=== PATIENT | male | born 1955 | race Caucasian/White ===

== ENCOUNTER 2018-01-31 09:25 | Emergency (ER) | payer OTHER ==
[~2018-01-31] VITALS: Ht 170.2 cm; Wt 74.0 kg
[~2018-01-31 09:25] MED LIST: ASPI1TAB7 PO; AUGM875T PO; CANA100T PO; GLUC1000 PO; JANU100T PO; LIPI20TA PO; LISI-360 PO; ZOLP10TA3 PO
[2018-01-31 09:29] VITALS: BP 159/75; PULSE 89; RESP 16; TEMP 98.3; O2SAT 99
[2018-01-31] MEDS ORDERED: LISI-515 PO (09:47)
[2018-01-31] MEDS ORDERED: VICT18IN SQ (09:47)
[2018-01-31] MEDS ORDERED: TETANUS/DIPHTHERIA TOXOID ADULT 0.5 ML VIAL IM ONE (10:00)
[2018-01-31] MEDS ORDERED: LIDOCAINE HCL 1% 20 ML VIAL ONE (10:14)
[2018-01-31] MEDS ORDERED: LIDOCAINE HCL 1% 50 ML VIAL INFIL ONE (10:15)
--- NOTE | 2018-01-31 10:16 | PD ---
HPI Chief Complaint: Laceration/Skin Injury Time Seen by Provider: 09:33 Travel History International Travel<30 days: No Contact w/Intl Traveler<30days: No Traveled to known affect area: No History of Present Illness HPI This is a 62-year-old male here with a laceration to his nose caused by a trip and fall last night. He reports he tripped while getting out of the hot tub falling forward injuring his nose on a lawn chair. There was no loss of consciousness. He denies headache, visual changes, neck pain. Denies any other injuries. Not anticoagulated. He cleanse the wound and placed a Band- Aid over the nose. This morning when he removed the bandage he noticed the wound looked deeper than he originally thought which prompted his visit today. Injury occurred approximately 8 hours prior. Symptom severity is moderate. No aggravating or alleviating factors. PFSH Past Medical History Diabetes: Yes Patient Takes Glucophage: No Hypertension: Yes Tetanus Vaccination: > 5 Years Influenza Vaccination: No Past Surgical History Appendectomy: Yes Tonsillectomy: Yes Social History Alcohol Use: Yes (occ) Tobacco Use: No Allergies-Medications (Allergen,Severity, Reaction): Coded Allergies: No Known Allergies (Unverified Adverse Reaction, Unknown, 01/31/18) Reported Meds & Prescriptions Reported Meds & Active Scripts Active Reported Victoza Inj (Liraglutide Inj) 18 Mg/3 Ml Pen 0.6 Mg SQ DAILY Lisinopril 20 Mg Tab 20 Mg PO DAILY Review of Systems Except as stated in HPI: all other systems reviewed are Neg General / Constitutional: No: Fever Eyes: No: Visual changes HENT: No: Headaches Cardiovascular: No: Chest Pain or Discomfort Respiratory: No: Shortness of Breath Gastrointestinal: No: Abdominal Pain Genitourinary: No: Dysuria Physical Exam Narrative GENERAL: Alert and well-appearing 62-year-old male SKIN: Warm and dry. HEAD: Atraumatic. Normocephalic. EYES: Pupils equal and round. EOMs intact. No injection or drainage. ENT: No nasal bone tenderness or deformity. 2 cm vertical laceration to the center of the nose. no nasal bleeding or discharge. Mucous membranes pink and moist. NECK: Trachea midline. No midline spine tenderness. Patient freely moves the neck. CARDIOVASCULAR: Regular rate and rhythm. RESPIRATORY: No accessory muscle use. Clear to auscultation. Breath sounds equal bilaterally. GASTROINTESTINAL: Abdomen soft, non-tender, nondistended. Hepatic and splenic margins not palpable. MUSCULOSKELETAL: Extremities without clubbing, cyanosis, or edema. No obvious deformities. NEUROLOGICAL: Awake and alert. No obvious cranial nerve deficits. Motor grossly within normal limits. Five out of 5 muscle strength in the arms and legs. Normal speech. Data Data Last Documented VS Vital Signs Date Time Temp Pulse Resp B/P (MAP) Pulse Ox O2 Delivery O2 Flow Rate FiO2 01/31/18 09:29 98.3 89 16 159/75 (103) 99 Room Air Orders Orders Tetanus/Diphtheria Tox Adult (Tetanus/Di (01/31/18 10:00) Lidocaine 1% Inj (50 Ml) (Xylocaine 1% I (01/31/18 10:15) Lidocaine 1% Inj (Xylocaine 1% Inj) (01/31/18 10:14) MDM Medical Decision Making Medical Screen Exam Complete: Yes Emergency Medical Condition: Yes Differential Diagnosis Facial laceration, nasal bone injury, nasal bone fracture, abrasions Narrative Course 62-year-old male here with a 2 cm laceration to his nose. Injury occurred approximately 8 hours prior. Wound edges are approximately 3-4 mm. Leaving the wound open in its current state I feel would cause significant scarring. risk of infection was discussed at length with patient. He accepts these risk and is requesting that I close the wound. Given its location and risk of scarring I will loosely approximate wound edges after extensive irrigation. He will be referred to plastic surgery for follow-up. Procedures Procedure Narrative LACERATION LOCATION: Nose LENGTH: 2 cm NUMBER OF STITCHES/YRN: 2 REPAIR: The area of the laceration was prepped with Betadine and sterilely draped. The laceration was infiltrated with 1% lidocaine. The wound was copiously irrigated and explored without evidence of foreign body, tendon injury or neurovascular injury. The wound was closed using 6-0 Ethilon. This was a single layer repair. A sterile dressing was applied. The patient was advised to keep the dressing clean and dry. Patient tolerated the procedure well. Diagnosis Primary Impression: Facial laceration Qualified Codes: S01.81XA - Laceration without foreign body of other part of head, initial encounter Referrals: Plastic Surgeon Primary Care Physician Additional Instructions: Cleanse the wound daily with soap and water. Apply thin layer of Bactroban ointment and cover with a dressing. Sutures need to be removed in 5-7 days. Return if you develop new or worsening symptoms Scripts Amoxicillin-Clavulanate (Augmentin) 875-125 Mg Tab 1 TAB PO BID for Infection, #20 TAB 0 Refills Prov: Carolina Soliz 01/31/18 Mupirocin Nasal Oint (Bactroban Nasal Oint) 2% Oint 1 APPLIC TOPICAL BID for Mgmt Bacterial Infection, #1 TUBE 0 Refills For 5 days. Prov: Carolina Soliz 01/31/18 Disposition: 01 DISCHARGE HOME Condition: Stable Carolina Soliz January 31, 2018 10:16
[2018-01-31] MEDS ORDERED: BACTOIN TOPICAL (10:37)
[2018-01-31] MEDS ORDERED: AUGM875T3 PO (10:37)
== END 2018-01-31 10:51 | disposition home or self-care (01) ==
LOC: PHED 09:25
DX: S01.81XA Laceration without foreign body of other part of head, initial encounter (principal); E11.9 Type 2 diabetes mellitus without complications; I10 Essential (primary) hypertension; W01.0XXA Fall on same level from slipping, tripping and stumbling without subsequent striking against object, initial encounter; Z79.899 Other long term (current) drug therapy; Z23 Encounter for immunization
CPT/HCPCS: 12011; 90471; 90714